=== PATIENT | male | born 1965 | race Caucasian/White ===

== ENCOUNTER → 2021-02-26 | Outpatient (CLI) | payer BC | LOC: US 09:49 | DX: R74.8 Abnormal levels of other serum enzymes (principal); K76.0 Fatty (change of) liver, not elsewhere classified | CPT/HCPCS: 76705 ==

== ENCOUNTER → 2021-05-10 | Outpatient (CLI) | payer BC ==
[~2021-05-10] MED LIST: LEVOTHYROXINE25 MCG PO; LOSARTAN POTAS100 MG PO; SILDENAFIL20 MG PO; TENORMIN 25 MG25 MG PO
[2021-05-11 12:15] LABS: ALPHA-1-ANTITRYPSIN, SERUM 159 mg/dL (101-187)
[2021-05-11 15:12] LABS: MITOCHONDRIAL (M2) ANTIBODY <20.0 Units (0.0-20.0)
== END ==
LOC: LAB 14:35
PROVIDERS: Internal Medicine Gastroenterology
DX: R94.5 Abnormal results of liver function studies (principal)
CPT/HCPCS: 36415; 80076; 82103; 82728; 83540; 83550; 86038

== ENCOUNTER → 2021-05-13 | Day surgery (SDC) | payer BC | END | disposition home or self-care (01) | LOC: OR 06:22 | DX: Z12.11 Encounter for screening for malignant neoplasm of colon (principal); D12.0 Benign neoplasm of cecum; D12.2 Benign neoplasm of ascending colon; D12.3 Benign neoplasm of transverse colon; K59.09 Other constipation; F10.10 Alcohol abuse, uncomplicated; K70.0 Alcoholic fatty liver; I10 Essential (primary) hypertension; E78.5 Hyperlipidemia, unspecified; E05.90 Thyrotoxicosis, unspecified without thyrotoxic crisis or storm; Z20.822 Contact with and (suspected) exposure to COVID-19; K57.30 Diverticulosis of large intestine without perforation or abscess without bleeding; K64.4 Residual hemorrhoidal skin tags; K64.1 Second degree hemorrhoids | CPT/HCPCS: J2704; J7040 ==